=== PATIENT | female | born 1985 | race African-American/Black ===

== ENCOUNTER 2018-04-24 21:01 | Outpatient (CLI) | payer MEDICAID ==
--- NOTE | 2018-04-24 22:28 | Ultrasound Report ---
Reason: IUD SURVEILLANCE, ELECTIVE Procedure Date: 04/24/2018 Accession Number: [id number] / [id number] Procedure: US - Pelvic w/Transvaginal CPT Code: FULL RESULT: EXAM: PELVIC ULTRASOUND EXAM DATE: 04/24/2018 09:19 PM. CLINICAL HISTORY: IUD SURVEILLANCE, ELECTIVE. COMPARISON: None. TECHNIQUE: Realtime transabdominal pelvic scan performed to identify the uterus and adnexa and as an overview of other pelvic structures, followed by transvaginal scan to provide greater detail of the uterus and adnexa, with static image documentation. FINDINGS: Uterus: 8.6 x 5.0 x 7.0 cm, volume 155 cc. Anteverted position. Normal overall size and echotexture. Masses: There is a partially pedunculated fibroid from the right anterior aspect of the uterus measuring 1 cm x0.7 cm x1.1 cm. There is an intramuscular fibroid within the left body of the uterus measuring 2.8 x 2.2 x 2.8 cm. There is an echogenic focus within the endometrial canal measuring 2.6 x 0.8 x 1.3 cm. Nonvascular. Endometrium: 12 mm. Normal. Cervix: Unremarkable. Right Ovary: 3.0 x 2.5 x 2.5 cm, volume 9.5 cc. Normal echotexture and blood flow. Left Ovary: 3.1 x 2.6 x 2.9 cm, volume 12.1 cc. Normal echotexture and blood flow. Free Fluid: None. Other: There is no evidence for an IUD within the uterine canal. IMPRESSION: 1. No visualized IUD. 2. Nonvascular, echogenic focus within the endometrial canal. Although there is no discernible vascularity this still could represent a polyp. 3. Uterine fibroids as described. [facility] The call report notification system was initiated by Dr. Praneeth Shah at 22:21 hrs on 04/24/18. The above findings were discussed with Dr Cecilia Dr by Dr. Praneeth Shah at 22:27 hrs on 04/24/18.
== END 2018-04-24 21:02 | disposition home or self-care (01) ==
LOC: DI 21:01
PROVIDERS: ATTEND Nurse Practitioner Obstetrics & Gynecology
DX: Z30.431 Encounter for routine checking of intrauterine contraceptive device (principal); O03.9 Complete or unspecified spontaneous abortion without complication; D25.9 Leiomyoma of uterus, unspecified; D25.1 Intramural leiomyoma of uterus
CPT/HCPCS: 76830; 76856

== ENCOUNTER 2019-06-25 07:42 | Outpatient (CLI) | payer BC, MEDICAID ==
--- NOTE | 2019-06-25 07:52 | XRAY Report ---
Reason: LEFT NECK PAIN Procedure Date: 06/25/2019 Accession Number: [id number] / [id number] Procedure: WCP - Cervical Spine 2 View CPT Code: Final Report FULL RESULT: EXAM: CERVICAL SPINE RADIOGRAPHY EXAM DATE: 06/25/2019 07:42 AM. CLINICAL HISTORY: LEFT NECK PAIN. Patient refused to remove facial and neck jewelry. COMPARISONS: None. TECHNIQUE: 4 views. FINDINGS: Alignment: Minimal right convex curvature at the cervicothoracic junction. No subluxation. Bones: The cervical vertebral bodies and posterior elements are well visualized from the skull base through C7-T1. No fractures or bone lesions. The upper odontoid process and anterior arch of C1 are obscured by ear rings. Disks: Normal. Disk heights are maintained. Facets: No degenerative disease. Soft Tissues: Normal. No prevertebral soft tissue swelling. The visualized lung apices are clear. IMPRESSION: Negative cervical spine series without findings to explain pain. RAD[facility]
== END 2019-06-25 23:59 | disposition home or self-care (01) ==
LOC: DI.WCP 07:42
PROVIDERS: ATTEND Family Medicine
DX: M54.2 Cervicalgia (principal)
CPT/HCPCS: 72040

== ENCOUNTER 2019-11-26 07:00 | Outpatient (CLI) | payer BC, MEDICAID ==
[2019-11-27 12:14] LABS: MUDS CUTOFF CONCENTRATIONS CUTOFF CONC BELOW:
[2019-11-27 12:36] LABS: AMPHETAMINE SCREEN,URINE NEGATIVE (NEGATIVE); BENZODIAZEPINES SCREEN, URINE NEGATIVE (NEGATIVE); COCAINE SCREEN URINE NEGATIVE (NEGATIVE); METHADONE SCREEN, URINE NEGATIVE (NEGATIVE); METHAMPHETAMINES SCREEN, URINE NEGATIVE (NEGATIVE); OPIATE SCREEN, URINE NEGATIVE (NEGATIVE); OXYCODONE SCREEN, URINE NEGATIVE (NEGATIVE); PROPOXYPHENE SCREEN, URINE NEGATIVE (NEGATIVE); TRICYCLIC ANTIDEPRESSANT,URINE NEGATIVE (NEGATIVE)
== END 2019-11-26 23:59 | disposition home or self-care (01) ==
LOC: LAB.R 07:00
PROVIDERS: ATTEND Obstetrics & Gynecology
DX: Z32.01 Encounter for pregnancy test, result positive (principal)
CPT/HCPCS: 80306

== ENCOUNTER 2019-12-12 16:50 | Outpatient (CLI) | payer BC, MEDICAID ==
--- NOTE | 2019-12-13 10:11 | Ultrasound Report ---
PROCEDURE: OB First Trimester INDICATIONS: POSITIVE TEST OUTSIDE/PRIOR DATING DATA: Last menstrual period (LMP): Not available. LMP-based estimated date of delivery (FABIOLA): Not available. First dating scan (date and location): This study, 12/12/2019. Estimated date of delivery (FABIOLA) from first dating scan: 07/13/2020 +/- 5 days based on this examinatio n.. TECHNIQUE: Real-time scanning was performed of the fetus and maternal pelvic organs, with image documentation. Patient declines transvaginal scanning. COMPARISON: None FINDINGS: There is a single living intrauterine gestation with crown-rump length measuring 2.7 cm wh ich correlates with a gestational age of 9 weeks 3 days, +/- 5 days. Heart rate identified is 180 bpm . Maternal cervical length is normal. Note is made of a small subchorionic hemorrhage measuring 1.3 x 0.5 x 1.2 cm at the gestational sac margin. Note is made of a small right partially pedunculated ant erior fibroid measuring 1.8 cm and a left uterine body/lower uterine segment fibroid measuring 3.4 x 3.4 x 2.8 cm. Embryo: Viable gestation as noted above. Measurement variability in dating: +/- 4 weeks by LMP, +/- 7 days by mean sac diameter (use before 6 weeks gestation if crown-rump length not able to be measured), +/- 5 days by crown-rump length (6-12 weeks gestation). Maternal organs: Ovaries normal considering gestational status.. Limited images through the kidneys demonstrate no hydronephrosis. IMPRESSION: Single living intrauterine gestation, 19 week 3 day gestational age with delivery projected to be tiesha tered on 07/13/2020, +/- 5 days. Follow-up anatomic survey at 20 weeks gestation is recommended. Incidental note is made of a small subchorionic hemorrhage measuring only 5 x 13 x 12 mm. Reviewed by: Garrick Rdz MD on 12/13/2019 10:10 AM PDT Approved by: Garrick Rdz MD on 12/13/2019 10:10 AM PDT Station ID: [id number]
== END 2019-12-12 16:51 | disposition home or self-care (01) ==
LOC: DI 16:50
PROVIDERS: ATTEND Obstetrics & Gynecology
DX: Z32.01 Encounter for pregnancy test, result positive (principal)
CPT/HCPCS: 76801

== ENCOUNTER 2019-12-24 08:00 | Outpatient (CLI) | payer BC, MEDICAID ==
[2019-12-26 21:08] LABS: TRICHOMONAS VAGINALIS DNA NEGATIVE (NEGATIVE)
== END 2019-12-24 23:59 | disposition home or self-care (01) ==
LOC: LAB.R 08:00
PROVIDERS: ATTEND Advanced Practice Midwife
DX: Z34.90 Encounter for supervision of normal pregnancy, unspecified, unspecified trimester (principal)
CPT/HCPCS: 87491; 87591; 87661

== ENCOUNTER 2020-01-21 11:24 | Outpatient (CLI) | payer BC ==
[2020-01-21 11:58] LABS: BILIRUBIN,URINE NEGATIVE (NEGATIVE); GLUCOSE, URINE (UA) NEGATIVE (NEGATIVE); KETONES,URINE (UA) NEGATIVE (NEGATIVE); LEUKOCYTE ESTERASE, URINE NEGATIVE (NEGATIVE); NITRITE,URINE NEGATIVE (NEGATIVE); OCCULT BLOOD,URINE NEGATIVE (NEGATIVE); PROTEIN,URINE NEGATIVE (NEGATIVE); UROBILINOGEN,URINE 1 (NORMAL) E.U./dL (NORMAL)
[2020-01-21 12:04] LABS: BACTERIA,URINE Few /HPF (None Seen); CLARITY,URINE HAZY (CLEAR); RBC,URINE None Seen /HPF (0-5); SQUAMOUS EPITHELIAL CELL,UR MANY Squamous (<= Few)
[2020-01-21 12:04] LABS: BASOPHILS % (AUTO) 0.3 %; EOSINOPHILS # (AUTO) 0.1 10^3/uL (0.0-0.7); EOSINOPHILS % (AUTO) 0.9 %; HGB - HEMOGLOBIN 11.2 g/dL (12.0-16.0); LYMPHOCYTES # (AUTO) 1.8 10^3/uL (1.5-3.5); LYMPHOCYTES % (AUTO) 21.9 %; MEAN CORPUSCULAR HEMOGLOBIN 28.6 pg (27.0-31.0); MEAN CORPUSCULAR HGB CONC 35.3 g/dL (32.0-36.0); MEAN CORPUSCULAR VOLUME 81.1 fL (81.0-99.0); MEAN PLATELET VOLUME 9.1 fL (7.9-10.8); MONOCYTES # (AUTO) 0.5 10^3/uL (0.0-1.0); MONOCYTES % (AUTO) 6.4 %; NEUTROPHILS # (AUTO) 5.6 10^3/uL (1.5-6.6); NEUTROPHILS % (AUTO) 69.6 %; PLT - PLATELET COUNT 377 10^3/uL (130-450); RED BLOOD COUNT 3.91 10^6/uL (4.20-5.40); RED CELL DISTRIBUTION WIDTH 13.5 % (12.0-15.0)
[2020-01-21 12:15] LABS: ALBUMIN 3.8 g/dL (3.2-5.5); BILIRUBIN,TOTAL 0.3 mg/dL (0.2-1.0); CALCIUM 10.1 mg/dL (8.5-10.3); CREATININE 0.6 mg/dL (0.4-1.0); TOTAL PROTEIN 7.7 g/dL (6.7-8.2)
[2020-01-22 11:12] LABS: HEPATITIS B SURFACE ANTIGEN NON-REACTIVE (NON-REACTIVE); HEPATITIS C ANTIBODY NON-REACTIVE (NON-REACTIVE)
[2020-01-22 13:41] LABS: HIV AG/AB 4TH GEN NON-REACTIVE (NON-REACTIVE)
== END 2020-01-21 11:25 | disposition home or self-care (01) ==
LOC: LAB 11:24
PROVIDERS: ATTEND Advanced Practice Midwife
DX: Z34.90 Encounter for supervision of normal pregnancy, unspecified, unspecified trimester (principal)
CPT/HCPCS: 36415; 80053; 81001; 81599; 85025; 86592; 86762; 86787; 86803; 86850; 86900; 86901; 87086; 87340; 87389

== ENCOUNTER 2020-02-20 15:24 | Outpatient (CLI) | payer BC ==
--- NOTE | 2020-02-21 10:06 | Ultrasound Report ---
PROCEDURE: OB Detailed Eval INDICATIONS: SUPERVISION OF NORMAL OUTSIDE/PRIOR DATING DATA: Last menstrual period (LMP): Not available. LMP-based estimated date of delivery (FABIOLA): Not available. First dating scan (date and location): 12/12/2019. Estimated date of delivery (FABIOLA) from first dating scan: 07/13/2020, +/- 5 days. TECHNIQUE: Real-time scanning was performed of the fetus, with image documentation and biometric measurements. Endovaginal scanning: Not needed COMPARISON: 12/12/2019 OB ultrasound, early first trimester. FINDINGS: General: A single living intrauterine gestation is present. Presentation: Variable Placenta: Placental position is posterior right, without previa. Amniotic fluid index: 15.2 cm, 62nd percentile for gestational age. heart rate: 158 beats per minute. Maternal cervical canal: 3.2 cm long; normal length is 2.5 cm or more. biometrics: Biparietal diameter: 4.4 cm, 19 weeks 2 days Head circumference: 6.4 cm, 19 weeks 1 day Abdominal circumference: 14.6 cm, 19 weeks 6 days Femur length: 3.0 cm, 19 weeks 2 days Estimated gestational age from initial scan: 19 weeks 3 days. Composite gestational age from present scan: 19 weeks 3 days Estimated weight and percentile: 300 g, 54th percentile Measurement variability in biometric dating: +/- 10 days from 12-20 weeks gestation, +/- 2 weeks from 20-30 weeks gestation, +/- 3 weeks at 30 weeks gestation or later. Anatomic survey: Neuro: Ventricles are normal at less than 10 mm. Cisterna magna is normal at 3-11 mm. Cerebellum i s normal in size and morphology. . Face: Nose and lips, facial profile are not well seen. Spine: No evidence for spina bifida but portions of the spine are not well seen due to motion. Heart: 4-chambered heart is present, with poorly visualized ventricular outflow tracts. Diaphragm: Diaphragm is intact. Stomach: Left-sided stomach is present. Kidneys: Not well seen.. Cord: 3 vessel cord has orthotopic insertion. Bladder: Normal in size. Extremities: Poorly visualized due to persistent motion. IMPRESSION: Appropriate interval growth, no anomaly seen but as discussed above the motion was persis tent, and quality of visualization of the anatomy is very limited. Repeat anatomic survey in approximately 2 weeks is recommended. Reviewed by: Garrick Rdz MD on 02/21/2020 10:04 AM PST Approved by: Garrick Rdz MD on 02/21/2020 10:04 AM PST Station ID: [id number]
== END 2020-02-20 15:25 | disposition home or self-care (01) ==
LOC: DI 15:24
PROVIDERS: ATTEND Advanced Practice Midwife
DX: Z34.92 Encounter for supervision of normal pregnancy, unspecified, second trimester (principal); Z36.89 Encounter for other specified antenatal screening

== ENCOUNTER 2020-03-20 15:43 | Outpatient (CLI) | payer BC ==
--- NOTE | 2020-03-21 08:53 | Ultrasound Report ---
PROCEDURE: OB F/U or Repeat INDICATIONS: SUPERVISION OF NOMRAL PREG - COMPLETEION OF FAS OUTSIDE/PRIOR DATING DATA: Last menstrual period (LMP): Unknown. LMP-based estimated date of delivery (FABIOLA): Unknown. First dating scan (date and location): 12/12/2019. Estimated date of delivery (FABIOLA) from first dating scan: 07/13/2020. TECHNIQUE: Real-time scanning was performed of the fetus, with image documentation and biometric measurements. Endovaginal scanning: Not performed COMPARISON: 12/12/2019, 02/20/2020. FINDINGS: General: A single living intrauterine gestation is present. Presentation: Vertex Placenta: Placental position is posterior, without previa. Amniotic fluid index: 15.6 cm, 58th percentile for gestational age. heart rate: 147 beats per minute. Maternal cervical canal: 3.4 cm long; normal length is 2.5 cm or more. biometrics: Biparietal diameter: 5.4 cm, 22 weeks 5 days Head circumference: 21.0 cm, 23 weeks 1 day Abdominal circumference: 17.8 cm, 22 weeks 5 days Femur length: 4.1 cm, 23 weeks 2 days Estimated gestational age from initial scan: 23 weeks 4 days. Composite gestational age from present scan: 23 weeks 1 day Estimated weight and percentile: 522 g, 18th percentile Measurement variability in biometric dating: +/- 10 days from 12-20 weeks gestation, +/- 2 weeks from 20-30 weeks gestation, +/- 3 weeks at 30 weeks gestation or more. Other: Normal appearance of the cisterna magna and cerebellum, face/lips, spine, four-chamber view, v entricular outflow tracts, chest, stomach, kidneys, upper and lower extremities. IMPRESSION: Single living intrauterine fetus in vertex presentation. Normal appearance of structures described above which completes the anatomic survey with the exception of nuchal fold (not imaged secondary to gestational age) Reviewed by: Wagner Lynch MD on 03/21/2020 8:52 AM PST Approved by: Wagner Lynch MD on 03/21/2020 8:52 AM PST Station ID: [id number]
== END 2020-03-20 15:44 | disposition home or self-care (01) ==
LOC: DI 15:43
PROVIDERS: ATTEND Nurse Practitioner Obstetrics & Gynecology
DX: Z34.90 Encounter for supervision of normal pregnancy, unspecified, unspecified trimester (principal)

== ENCOUNTER 2020-04-18 12:08 | Observation (INO) | payer BC ==
[2020-04-18] MEDS ORDERED: LABETALOL 20 MG/4 ML SYRINGE IVP ONE (12:42)
[2020-04-18] MEDS ORDERED: MAGNESIUM SULFATE 4 GRAM 4 GM/50 ML BAG IV ONE (12:43)
[2020-04-18] MEDS ORDERED: TRANEXAMIC ACID IN NACL 1,000 MG/100 ML BAG IV PRN (12:45)
[2020-04-18] MEDS ORDERED: LIDOCAINE-MPF 1% 30 ML VIAL ID PRN (12:45)
[2020-04-18] MEDS ORDERED: OXYTOCIN/SODIUM CHLORIDE 500 ML IV PRN (12:45)
[2020-04-18] MEDS ORDERED: OXYTOCIN 10 UNIT/ML VIAL IM PRN (12:45)
[2020-04-18] MEDS ORDERED: CARBOPROST TROMETHAMINE 250 MCG/ML AMP IM PRN (12:45)
[2020-04-18] MEDS ORDERED: hydrALAZINE INJ 20 MG/ML VIAL IVP PRN (12:45)
[2020-04-18] MEDS ORDERED: miSOPROStoL 200 MCG TABLET BC PRN (12:45)
[2020-04-18] MEDS ORDERED: SODIUM CHLORIDE FLUSH 0.9% 10 ML SYRINGE IVP PRN (12:45)
[2020-04-18] MEDS ORDERED: BETAMETHASONE 30 MG/5 ML VIAL IM ONE (12:48)
--- NOTE | 2020-04-18 12:59 | HISTORY & PHYSICAL EXAMINATION ---
History of Present Illness - History of Present Illness HPI Comment/Other: please see other note Conclusion/Plan - Lab Results Fish Bones: 04/18/20 13:05 04/18/20 13:05
[2020-04-18] MEDS ORDERED: MAGNESIUM SULFATE IN WATER 20 GM/500 ML IV.SOLN IV SCH (13:00)
[2020-04-18] MEDS ORDERED: LABETALOL 100 MG TABLET PO ONE (13:00)
[2020-04-18] MEDS ORDERED: LACTATED RINGERS 1,000 ML IV SCH (13:00)
[2020-04-18 13:12] LABS: BASOPHILS % (AUTO) 0.1 %; EOSINOPHILS % (AUTO) 0.1 %; HGB - HEMOGLOBIN 9.5 g/dL (12.0-16.0); LYMPHOCYTES # (AUTO) 1.6 10^3/uL (1.5-3.5); LYMPHOCYTES % (AUTO) 22.7 %; MEAN CORPUSCULAR HGB CONC 35.8 g/dL (32.0-36.0); MEAN CORPUSCULAR VOLUME 83.6 fL (81.0-99.0); MEAN PLATELET VOLUME 9.8 fL (7.9-10.8); MONOCYTES # (AUTO) 0.5 10^3/uL (0.0-1.0); MONOCYTES % (AUTO) 7.9 %; NEUTROPHILS # (AUTO) 4.4 10^3/uL (1.5-6.6); NEUTROPHILS % (AUTO) 64.8 %; PLT - PLATELET COUNT 142 10^3/uL (130-450); RED BLOOD COUNT 3.17 10^6/uL (4.20-5.40); RED CELL DISTRIBUTION WIDTH 14.2 % (12.0-15.0); WHITE BLOOD COUNT 6.8 x10^3/uL (4.8-10.8)
[2020-04-18] MEDS: LABETALOL 20 MG/4 ML SYRINGE IVP PRN ×3 (13:13→13:32)
[2020-04-18 13:23] LABS: ALBUMIN 2.8 g/dL (3.2-5.5); ALBUMIN/GLOBULIN RATIO 0.9 (1.0-2.2); BILIRUBIN,TOTAL 1.1 mg/dL (0.2-1.0); CALCIUM 8.4 mg/dL (8.5-10.3); CREATININE 0.9 mg/dL (0.4-1.0)
[2020-04-18] MEDS ORDERED: LABETALOL 5 MG/1 ML 20 ML MDV ONE (13:51)
--- NOTE | 2020-04-18 14:12 | HISTORY & PHYSICAL EXAMINATION ---
History of Present Illness - History of Present Illness HPI Comment/Other: CC: feeling bad HPI: yesterday started feeling poorly. Had nausea and vomiting. Chest pain with gradual onset and not severe. No SOB, cough, or hemoptysis, no leg swelling. Severe LARES gradually came on, bilateral. Visual changes today with rainbows and halos and flashing lights. Having upper abd pain that has been present for months and is unchanged from baseline. PMH: chronic anemia PSH: appendectmy vs. adenoidectomy--record not clear and pt not asked. Allergies: NKDA Meds: PNV, iron, and zofran FH: no VTE, stroke, or HTN SH: no t/e/d OB: , Term x2, uncomplicated, no BP issues. One TAB. Initial U/S: at 9.3wks with unk LMP for FABIOLA 07/13/2020 O pos/Rubella immune VZV immune Gentic testing: QUAD- declines, will consider if FAS abnormal FAS 02/20/2020 WNL with the exception of a large portion of the exam was poorly visualized secondary to movements. Posterior placenta, no previa. 3VC. HAKEEM WNL. 03/20/2019 completion FAS WNL Glucola not done yet Flu: 02/18/2020 TDAP next visit GBS & GC/CT at 36 weeks HSV: denies self and partner Breast pump Rx MOD: . Has two sons 16yo Jtawpedrito, and 3yo Wilmai (pushed 10min). Desires epidural. Spouse: Bautista. Hopes for a girl! pp contraception: This is a NuvaRing ! PAP: 2018-wnl per pt Exam - Vital Signs Reviewed Vital Signs: Yes Vital Signs: Vital Signs x48h BP 04/18/20 13:39 226/118 H - Physical Exam Comments/Other: Alert, anxious, NAD EOMI Cor RRR with 2/6 holosystolic murmur Lungs CTA bilat Abd soft, moderate tenderness upper abdomen, no rebound or guard EFG normal No LE edema 3+ patellar DTR AST 202, ALT 141 Conclusion/Plan - Lab Results Fish Bones: 04/18/20 13:05 04/18/20 13:05 - Other Other Results/Comments: 35yo at 27w5d with hypertensive crisis, likely preeclampsia; and chest pain --LFTs elevated, plts low-normal, P:C ratio pending. Suspect evolving HELLP --Magnesium 4g bolus and 2g per hour initiated with IVF at 75cc/hour --Hypertensive crisis managed with labetalol 200mg + IV labetalol 10mg then 20mg then 40mg then 80mg. Hydralazine 10mg IV given due to no improvement at all with labetalol. This finally improved BP to the degree that transport is safer. Initial BPs 220-230s/120s persistent during all IV labetalol doses. Improved to 180/90s when rolling out the door. Pt was to receive another 5mg of hydralazine in the helicopter and repeat BP in 20min. --Chest pain and wet cough Wet cough observed but not felt by patient: consider CXR to r/o pulmonary edema Chest pain moderate, gradual onset, no hemoptysis, no LE swelling. Ddx includes liver swelling, pulmonary edema, PE, and ACI. Work up further at [facility] --IUP at 27w5d Needs transport to NICU facility as pt will likely need to bbe delivered. Betamethasone 12mg IM given FHT 155 with moderate LTV, no accel, no decel. No labor complaints. No ultrasound performed here. --Chronic anemia, worse. Hct in 01/2020 was 31
[2020-04-18 14:15] LABS: C. PNEUMONIAE- RESP PCR PANEL NOT DETECTED
[2020-04-18 14:44] LABS: BILIRUBIN,URINE NEGATIVE (NEGATIVE); GLUCOSE, URINE (UA) NEGATIVE (NEGATIVE); KETONES,URINE (UA) NEGATIVE (NEGATIVE); LEUKOCYTE ESTERASE, URINE NEGATIVE (NEGATIVE); NITRITE,URINE NEGATIVE (NEGATIVE); OCCULT BLOOD,URINE MODERATE (NEGATIVE); PROTEIN,URINE >=300 mg/dL (NEGATIVE); UROBILINOGEN,URINE 1 (NORMAL) E.U./dL (NORMAL)
[2020-04-18 14:50] LABS: AMORPHOUS SEDIMENT,UR Moderate /LPF; BACTERIA,URINE None Seen /HPF (None Seen); CLARITY,URINE CLEAR (CLEAR); RBC,URINE 0-5 /HPF (0-5); SQUAMOUS EPITHELIAL CELL,UR FEW Squamous (<= Few)
[2020-04-18 15:38] VITALS: BP 187/99
[2020-04-18 16:24] LABS: CREATININE,URINE 177.8 mg/dL; PROTEIN/CREATININE RATIO,URINE 11.8 (<=0.2); TOTAL PROTEIN,URINE TIMED > 2100 mg/dL
[2020-04-18] MEDS ORDERED: SODIUM CHLORIDE FLUSH 0.9% 10 ML SYRINGE IVP SCH (17:00)
== END 2020-04-18 13:59 | disposition short-term general hospital (02) ==
LOC: WFO 12:08 → FBP 12:10 → WFO 12:44 → FBP 12:45
PROVIDERS: ADMIT Obstetrics & Gynecology; ATTEND Obstetrics & Gynecology
DX: O13.2 Gestational [pregnancy-induced] hypertension without significant proteinuria, second trimester (principal); O99.891 Other specified diseases and conditions complicating pregnancy; R07.9 Chest pain, unspecified; O99.012 Anemia complicating pregnancy, second trimester; D64.9 Anemia, unspecified; Z3A.27 27 weeks gestation of pregnancy; Z20.822 Contact with and (suspected) exposure to COVID-19
CPT/HCPCS: 0202U; 36415; 80053; 81001; 82570; 82731; 84156; 85025; 96372; 96374; 96375; 99214; G0378; 81599; 87086; J3475

== ENCOUNTER 2021-12-15 08:38 | Outpatient (CLI) | payer BC | END 2021-12-15 08:39 | disposition home or self-care (01) | LOC: LAB 08:38 | PROVIDERS: ATTEND Physician Assistant Medical | DX: Z53.9 Procedure and treatment not carried out, unspecified reason (principal) ==

== ENCOUNTER 2021-12-28 08:00 | Outpatient (CLI) | payer BC ==
[2021-12-28 12:50] LABS: ALBUMIN 4.3 g/dL (3.2-5.5); ALBUMIN/GLOBULIN RATIO 1.3 (1.0-2.2); BILIRUBIN,TOTAL 0.3 mg/dL (0.2-1.0); CALCIUM 9.8 mg/dL (8.5-10.3); CREATININE 0.8 mg/dL (0.4-1.0); POTASSIUM 3.8 mmol/L (3.5-5.0); TOTAL PROTEIN 7.5 g/dL (6.7-8.2)
[2021-12-28 13:19] LABS: BASOPHILS % (AUTO) 0.6 %; EOSINOPHILS # (AUTO) 0.1 10^3/uL (0.0-0.7); EOSINOPHILS % (AUTO) 1.5 %; HCT - HEMATOCRIT 34.5 % (37.0-47.0); HGB - HEMOGLOBIN 11.2 g/dL (12.0-16.0); LYMPHOCYTES # (AUTO) 2.2 10^3/uL (1.5-3.5); LYMPHOCYTES % (AUTO) 40.7 %; MEAN CORPUSCULAR HEMOGLOBIN 27.2 pg (27.0-31.0); MEAN CORPUSCULAR HGB CONC 32.5 g/dL (32.0-36.0); MEAN CORPUSCULAR VOLUME 83.7 fL (81.0-99.0); MONOCYTES # (AUTO) 0.4 10^3/uL (0.0-1.0); MONOCYTES % (AUTO) 7.5 %; NEUTROPHILS # (AUTO) 2.6 10^3/uL (1.5-6.6); NEUTROPHILS % (AUTO) 49.5 %; PLT - PLATELET COUNT 484 10^3/uL (130-450); RED BLOOD COUNT 4.12 10^6/uL (4.20-5.40); RED CELL DISTRIBUTION WIDTH 13.1 % (12.0-15.0); WHITE BLOOD COUNT 5.3 x10^3/uL (4.8-10.8)
== END 2021-12-28 23:59 | disposition home or self-care (01) ==
LOC: LAB.N 08:00
PROVIDERS: ATTEND Registered Nurse
DX: I10 Essential (primary) hypertension (principal); R42 Dizziness and giddiness
CPT/HCPCS: 36415; 80053; 85025